=== PATIENT | female | born 1970 | race Caucasian/White ===

== ENCOUNTER 2021-02-11 04:51 | Day surgery (SDC) | payer OTHER ==
[2021-02-07 13:09] VITALS: BMI 40.5
[~2021-02-11 04:51] MED LIST: LIDOCAINE HCL 1%, 10 MG/ML (20ML VIAL) PNB ONE
[2021-02-11] MEDS ORDERED: PROPOFOL 20 ML ONE (15:47)
[2021-02-11] MEDS ORDERED: MIDAZOLAM HCL 2 MG/2 ML SINGLE DOSE VIAL ONE (15:48)
[2021-02-11] MEDS ORDERED: LIDOCAINE HCL 1%, 10 MG/ML (20ML VIAL) PNB ONE (16:12)
[2021-02-11] MEDS ORDERED: ONDANSETRON 4 MG/2 ML VIAL IVPUSH PRN (16:27)
[2021-02-11] MEDS ORDERED: oxyCODONE HCL 5 MG TABLET PO PRN ×2 (16:27)
[2021-02-11] MEDS ORDERED: LACTATED RINGERS SOLUTION 1,000 ML IV SCH (16:30)
[2021-02-11] MEDS ORDERED: oxyCODONE HCL 5 MG TABLET ONE (17:39)
[2021-02-11] MEDS ORDERED: oxyCODONE HCL 5 MG TABLET PO ONE (17:43)
[2021-02-11 19:13] VITALS: BP 106/59; PULSE 79; TEMP 97.3
== END 2021-02-11 19:05 | disposition home or self-care (01) ==
LOC: JASU-SURG 04:51
PROVIDERS: ATTEND Surgery
PROC: 0HBT0ZX Excision of Right Breast, Open Approach, Diagnostic (ICD-10-PCS; principal; 2021-02-11 14:00)
DX: D24.1 Benign neoplasm of right breast (principal); N60.11 Diffuse cystic mastopathy of right breast
CPT/HCPCS: 19281; 76098-TC-FY; 94760